=== PATIENT | male | born 1980 | race Caucasian/White ===

== ENCOUNTER 2019-09-25 05:22 | Emergency (ER) | payer BC, SELFPAY ==
[2019-09-25] MEDS ORDERED: Ibuprofen 200 MG TAB ONE (06:11)
--- NOTE | 2019-09-25 08:24 | RAD ---
RIGHT ANKLE 3 VIEWS: HISTORY: Right ankle pain. FINDINGS/IMPRESSION: The ankle mortise is maintained. No fracture or dislocation is identified. POS: [id number]
== END 2019-09-25 06:25 | disposition home or self-care (01) ==
LOC: NAV ERS 05:22
DX: M25.571 Pain in right ankle and joints of right foot (principal); E11.9 Type 2 diabetes mellitus without complications; I10 Essential (primary) hypertension; F31.9 Bipolar disorder, unspecified; F41.9 Anxiety disorder, unspecified; F17.210 Nicotine dependence, cigarettes, uncomplicated; Z87.891 Personal history of nicotine dependence